=== PATIENT | male | born 1995 | race African-American/Black ===

== ENCOUNTER 2016-06-06 21:24 | Emergency (ER) | payer BC ==
[~2016-06-06] VITALS: Ht 177.8 cm; Wt 85.0 kg
[2016-06-06 21:29] VITALS: BP 169/84; PULSE 90; RESP 18; TEMP 98; O2SAT 98
--- NOTE | 2016-06-06 21:39 | PD ---
HPI Chief Complaint: Injury Time Seen by Provider: 21:35 Travel History International Travel<30 days: No Contact w/Intl Traveler<30days: No Traveled to known affect area: No History of Present Illness HPI Patient comes in complaining of left elbow pain that began approximately 2 hours ago. Patient states he was in the middle football game when he got hit in his elbow with 2 helmets. Patient states that initially he was able to flex his elbow, however as time has past it has become painful to try to flex his elbow. Pain is throbbing throughout his elbow and radiates distally. Pain improves with holding his elbow still is worse with movement. Patient states he applied ice prior coming to the emergency department. Denies doing anything else for this. Denies any numbness or tingling. PFSH Past Medical History Medical History: Denies Significant Hx Social History Alcohol Use: No Tobacco Use: No Substance Use: No Allergies-Medications (Allergen,Severity, Reaction): Coded Allergies: No Known Allergies (Unverified , 06/06/16) Reported Meds & Prescriptions Reported Meds & Active Scripts Active Naprosyn (Naproxen) 500 Mg Tab 500 Mg PO Q12HR PRN Review of Systems Except as stated in HPI: all other systems reviewed are Neg Physical Exam Narrative GENERAL: Well-developed, overly nourished, in no acute distress, and non-ill appearing. SKIN: Warm and dry. HEAD: Atraumatic. Normocephalic. EYES: Pupils equal and round. EOMI. No scleral icterus. No injection or drainage. ENT: No nasal bleeding or discharge. Mucous membranes pink and moist. NECK: Trachea midline. Supple. No nuclear rigidity. CARDIOVASCULAR: Radial pulses 2+, intact, and equal bilaterally. Capillary refill is 2 seconds. RESPIRATORY: No accessory muscle use. No respiratory distress. MUSCULOSKELETAL: No obvious deformities. No clubbing. No cyanosis. No edema. Decreased range of motion left elbow secondary to pain. Elbow : FROM and strength equal BL with passive flexion, extension, and pronation/supination. No laxity noted with valgus maneuvers. Pulses equal BL distal to injury. Capillary refill less than 2 seconds distal to injury and equal BL. FROM distal to injury and equal BL. Strength distal to injury equal BL. NV intact distal to injury and equal BL. Flexion and extension of thumb equal BL. Equal strength and movement with abduction/adductions of BL fingers. Station Chief strength equal BL. Slight laxity with varus maneuver noted the left elbow compared to the right. Patient reports pain to palpation throughout his left elbow. NEUROLOGICAL: Awake and alert. No obvious cranial nerve deficits. Motor grossly within normal limits. Normal speech. PSYCHIATRIC: Appropriate mood and affect; insight and judgment normal. Data Data Last Documented VS Vital Signs Date Time Temp Pulse Resp B/P Pulse Ox O2 Delivery O2 Flow Rate FiO2 06/06/16 21:29 98.0 90 18 169/84 98 Orders Elbow, Complete (4 Vws) (06/06/16 ) Ice/Cold Pack (06/06/16 21:34) Naproxen (Naprosyn) (06/06/16 21:45) Splint Or Brace Apply/Monitor (06/06/16 22:31) [facility] Medical Decision Making Medical Screen Exam Complete: Yes Emergency Medical Condition: Yes Differential Diagnosis Fracture, dislocation, sprain, other Narrative Course There is no clinical evidence for fracture. There is no clinical evidence to suspect bony injury by exam. Radiographic examination revealed no fracture seen at this time. No obvious ligamental injury or internal derangement is noted at this time. The distal extremity appears neurovascularly intact, without evidence of neurovascular injury nor compartment syndrome. Tendon exam also was intact. The effected limb was splinted. The patient was discharged on pain medication along with sprain and splint care instructions and given warnings for vascular compromise. The patient is to follow up with Orthopedics. The patient agrees with plan. Patient in no obvious distress upon re-evaluation. All pertinent Radiology result(s) discussed with patient. Patient was asked if they wanted to speak to my attending, which the patient did not wish to do at this time. Any questions/ concerns in reference to patient diagnosis/condition discussed and clarified prior to patient's discharge and/or orthopedics. Reinforced sheer importance of close follow up with patient's primary physician or primary care clinic. Instructed patient to return to ED immediately, if symptoms return/worsen. Pt showed understanding of above instructions. Further instructions and recommendations were detailed in discharge paperwork. Pt ambulated without difficulty out of ED at discharge. Diagnosis Primary Impression: Sprain of left elbow Qualified Code: S53.402A - Sprain of left elbow, initial encounter Referrals: Remigio Kan MD Patient Instructions: Elbow Sprain (ED), General Instructions, How to Use a Sling (GEN), Splint Care (ED) Additional Instructions: Follow-up with your primary care physician and/or orthopedics in 2-3 days for reevaluation. Take all medication as prescribed. Apply ice to affected area 20 minutes per hour as needed for pain. Return to the emergency department if symptoms get worse. Med/Other Pt SpecificInfo: Prescription(s) given Scripts Naproxen (Naprosyn)500 Mg Eki000 Mg PO Q12HR PRN (PAIN SCALE 1 TO 10) #14 TAB Ref 0 Prov:Nazia Glaser MD 06/06/16 Disposition: 01 DISCHARGE HOME Condition: Stable Elan Fernandez Jun 06, 2016 21:39
[2016-06-06] MEDS ORDERED: NAPROXEN 500 MG TAB PO ONE (21:45)
--- NOTE | 2016-06-06 22:24 | RADRPT ---
EXAM DATE/TIME: 06/06/2016 21:51 [facility] COMPARISON: No previous studies available for comparison. INDICATIONS : trauma, football injury collision from two players into Left arm and elbow area. MEDICAL HISTORY : None. SURGICAL HISTORY : None. ENCOUNTER: Initial ACUITY: 2 days PAIN SCORE: 10/10 LOCATION: Left Elbow FINDINGS: Multiple view examination of the left elbow demonstrates no soft tissue swelling, joint effusion, or fracture. The osseous structures are in normal alignment. Bony mineralization is normal. CONCLUSION: Unremarkable examination of the left elbow. Ricardo Moise MD on June 06, 2016 at 22:22 Board Certified Radiologist. This report was verified electronically.
[2016-06-06] MEDS ORDERED: NAPR500 PO (22:33)
== END 2016-06-06 23:00 | disposition home or self-care (01) ==
LOC: NEPB 21:24
DX: S53.402A Unspecified sprain of left elbow, initial encounter (principal); W21.81XA Striking against or struck by football helmet, initial encounter; Y93.61 Activity, american tackle football
CPT/HCPCS: 29105; 73080